=== PATIENT | female | born 2000 | race Caucasian/White ===

== ENCOUNTER 2023-02-26 10:20 | Outpatient (OUT) | payer BC, SELFPAY ==
[2023-02-27 05:28] LABS: Measles Antibodies, IgG >300.0 AU/mL (Immune >16.4); Mumps Abs, IgG 57.3 AU/mL (Immune >10.9); Rubella Antibodies, IgG 7.92 index (Immune >0.99)
[2023-02-27 06:30] LABS: Varicella-Zoster V Ab, IgG <135 index (Immune >165)
[2023-02-27 08:32] LABS: Hep B Surface Ab Non Reactive (.)
[2023-10-31 09:26] LABS: QuantiFERON-TB Gold Plus NEGATIVE
== END 2023-02-26 10:21 | disposition home or self-care (01) ==
PROVIDERS: PCP Family Medicine; Visit Provider Family Medicine
DX: Z01.84 Encounter for antibody response examination (principal); Z11.1 Encounter for screening for respiratory tuberculosis
CPT/HCPCS: 36415; 86480; 86706; 86735; 86762; 86765; 86787

== ENCOUNTER 2023-03-05 13:33 | Outpatient (OUT) | payer BC, SELFPAY ==
[2023-10-31 09:36] LABS: QuantiFERON-TB Gold Plus NEGATIVE
== END 2023-03-05 13:34 | disposition home or self-care (01) ==
LOC: LAB 13:33
PROVIDERS: PCP Family Medicine; Visit Provider Family Medicine
DX: Z00.00 Encounter for general adult medical examination without abnormal findings (principal)
CPT/HCPCS: 36415; 86480

== ENCOUNTER 2023-06-12 10:21 | Outpatient (OUT) | payer BC, SELFPAY ==
--- NOTE | 2023-06-12 | US_ITS ---
The [address] [address] Patient Name: YANIRA LEPE MRN: [id number] date: 2000 Sex: F Assigned Patient Location: RAD Current Patient Location: RAD Accession/Order Number: [id number] Exam Date: 06/12/2023 10:28 Report Date: 06/12/2023 14:02 At the request of: LAMINE FIGUEROA Procedure: US pelvis w/ transvaginal EXAM: US pelvis w/ transvaginal HISTORY: Pelvic pain COMPARISON: None. TECHNIQUE: Pelvic and transvaginal ultrasound performed using Doppler interrogation FINDINGS: Uterus measures 8 x 4.1 x 3.4 cm. Trace free fluid is seen. Endometrium is 7 mm. Both ovaries are normal in size and echotexture and vascularity. No evidence of torsion or mass. US/US pelvis w/ transvaginal IMPRESSION: Small amount of free pelvic fluid; physiologic in quantity.. No acute correlate for pelvic pain. No torsion. Electronically authenticated by: BERTRAND RODRIGUES Date: 06/12/2023 14:02
== END 2023-06-12 10:22 | disposition home or self-care (01) ==
LOC: RAD 10:22
PROVIDERS: PCP Family Medicine; Visit Provider Obstetrics & Gynecology
DX: N83.209 Unspecified ovarian cyst, unspecified side (principal); R10.2 Pelvic and perineal pain
CPT/HCPCS: 76830; 76856

== ENCOUNTER 2024-02-11 18:46 | Outpatient (REF) | payer BC, SELFPAY ==
[2024-02-17 09:09] LABS: Age Gdln ACOG Testing Note (.); IGP, rfx Aptima HPV ASCU Note (.)
== END 2024-02-11 18:47 | disposition home or self-care (01) ==
LOC: LAB 18:46
PROVIDERS: PCP Family Medicine; Visit Provider Obstetrics & Gynecology
DX: Z01.419 Encounter for gynecological examination (general) (routine) without abnormal findings (principal)
CPT/HCPCS: 88175

== ENCOUNTER 2024-02-20 11:23 | Outpatient (OUT) | payer BC, SELFPAY ==
--- OUTSIDE RECORDS SUMMARY | 2024-02-20 11:40 | XMS_ITS | CCD ---
Author Organization [facility] Care Team Providers Care Bench Carpenter Name Role Phone CAROLINA LAMINE Consulting Unavailable CAROLINA, LAMINE Attending Unavailable CAROLINA, LAMINE Admitting Unavailable HOY ., DR FORTUNE Primary Care Unavailable SILVESTRE CABRERA Consulting Unavailable BHAVANA LO Consulting Unavailable CAROLINA, LAMINE Consulting Unavailable CAROLINA, LAMINE Attending Unavailable HOY ., DR FORTUNE Primary Care Unavailable CAROLINA, LAMINE Admitting Unavailable HOY ., DR FORTUNE Admitting Unavailable HOY ., DR FORTUNE Primary Care Unavailable HOY ., DR FORTUNE Consulting Unavailable HOY ., DR FORTUNE Attending Unavailable Norris Gooden Consulting Unavailable CAROLINA, LAMINE Attending Unavailable HOY ., DR FORTUNE Primary Care Unavailable CAROLINA, LAMINE Admitting Unavailable CAROLINA, LAMINE Attending Unavailable Problems Active Problems Problem Classification Problem Date Documented Date Episodic/Chronic Abdominal pain (9 sources) Pelvic and perineal pain; Translations: [Right lower quadrant pain] Onset: 06-20-2022 Episodic Immunizations and screening for infectious disease (1 source) Contact with and (suspected) exposure to infections with a predominantly sexual mode of transmission; Translations: [CONTCT W EXPOS INFECT SEXUAL TRNSMS] Onset: 08-29-2022 Episodic Other female genital disorders (5 sources) Other specified noninflammatory disorders of vagina; Translations: [OTH SPEC NONINFLAMMATORY D/O VAGINA] Onset: 08-28-2022 Episodic Past or Other Problems Problem Classification Problem Date Documented Da te Episodic/Chronic Otitis media and related conditions (1 source) Otitis media, unspecified, bilateral; Translations: [OTITIS MEDIA UNSPECIFIED BILATERAL] Onset: 06-24-2022 Episodic Ovarian cyst (1 source) Other ovarian cyst, right side; Translations: [OTHER OVARIAN CYST RIGHT SIDE] Onset: 06-24-2022 Episodic Results Test Name Value Interpretation Reference Range Facil ity CBC AUTO DIFFon 09-27-2022 BASO # 0.0 103/ul Normal 0.0-0.1 [facility] Comment on above: Performed By: #### C BC #### [facility] [address] [address] [address] Christo Doherty Basophils/100 WBC (Bld) 0.8 % Normal 0.2-2.0 [facility] Comment on above: Performed By: #### C BC #### [facility] [address] [address] [address] Christo Doherty EO # 0.1 103/ul Normal 0.0-0.7 [facility] Comment on above: Performed By: #### C BC #### [facility] [address] [place] [address] Dr. Christo Doherty Eosinophils/100 WBC (Bld) 2.4 % Normal 0.9-7.0 [facility] Comment on above: Performed By: #### C BC #### [facility] [address] [place] [address] Dr. Christo Doherty Erythrocyte distribution width (RBC) [Ratio] 12.0 % Normal 11.0-15.0 [facility] Comment on above: Performed By: #### C BC #### [facility] [address] [place] [address] Dr. Christo Doherty Hematocrit (Bld) [Volume fraction] 42.8 % Normal 36.0-48.0 [facility] Comment on above: Performed By: #### C BC #### [facility] [address] [place] [address] Dr. Christo Doherty Hemoglobin (Bld) [Mass/Vol] 14.8 g/dL Normal 12.0-16.0 [facility] Comment on above: Performed By: #### C BC #### [facility] [address] [place] [address] Dr. Christo Doherty IG # 0.01 10e3/ul Normal 0.00-0.03 [facility] Comment on above: Performed By: #### C BC #### [facility] [address] [place] [address] Dr. Christo Doherty IG % 0.2 % Normal 0.0-0.5 [facility] Comment on above: Performed By: #### C BC #### [facility] [address] [place] [address] Dr. Christo Doherty LYMPH # 2.0 103/ul Normal 1.2-3.8 [facility] Comment on above: Performed By: #### C BC #### [facility] [address] [place] [address] Dr. Christo Doherty Lymphocytes/100 WBC (Bld) 41.4 % Normal 20.5-60.0 [facility] Comment on above: Performed By: #### C BC #### [facility] [address] [place] [address] Dr. Christo Doherty MANUAL DIFF REQ NO Normal [facility] Comment on above: Performed By: #### C BC #### [facility] [address] [place] [address] Dr. Christo Doherty MCH (RBC) [Entitic mass] 31.8 pg Normal 26.7-34.0 [facility] Comment on above: Performed By: #### C BC #### [facility] [address] [place] [address] Dr. Christo Doherty MCHC (RBC) [Mass/Vol] 34.6 g/dL Normal 29.9-35.2 [facility] Comment on above: Performed By: #### C BC #### [facility] [address] [place] [address] Dr. Christo Doherty MCV (RBC) [Entitic vol] 91.8 fL Normal 81.0-99.0 [facility] Comment on above: Performed By: #### C BC #### [facility] [address] [place] [address] Dr. Christo Doherty MONO # 0.5 103/ul Normal 0.3-0.8 [facility] Comment on above: Performed By: #### C BC #### [facility] [address] [place] [address] Dr. Christo Doherty Monocytes/100 WBC (Bld) 10.8 % Normal 1.7-12.0 [facility] Comment on above: Performed By: #### C BC #### [facility] [address] [place] [address] Dr. Christo Doherty NEUT # 2.2 103/ul Normal 1.4-6.5 [facility] Comment on above: Performed By: #### C BC #### [facility] [address] [place] [address] Dr. Christo Doherty Neutrophils/100 WBC (Bld) 44.4 % Normal 43.0-75.0 [facility] Comment on above: Performed By: #### C BC #### [facility] [address] [place] [address] Dr. Christo Doherty Platelet mean volume (Bld) [Entitic vol] 9.6 fL Normal 9.5-13.5 [facility] Comment on above: Performed By: #### C BC #### [facility] [address] [place] [address] Dr. Christo Doherty PLT 284 103/ul Normal 150-450 [facility] Comment on above: Performed By: #### C BC #### [facility] [address] [place] [address] Dr. Christo Doherty RBC 4.66 106/ul Normal 4.20-5.40 [facility] Comment on above: Performed By: #### C BC #### [facility] [address] [place] [address] Dr. Christo Doherty WBC 4.9 103/ul Normal 4.0-11.0 [facility] Comment on above: Performed By: #### C BC #### [facility] [address] [place] [address] Dr. Christo Doherty CYTOLOGYon 09-27-2022 SENT TO REF LAB 09/30/22 Normal [facility] Comment on above: Performed By: #### C YTO #### [facility] [address] [place] [address] Dr. Christo Doherty PREG QUANT HCGon 09-27-2022 HCG QUANT <1 Normal [facility] Comment on above: Performed By: #### P REGQNT #### [facility] [address] [place] [address] Dr. Christo Doherty HCG RANGE SEE BELOW Normal [facility] Comment on above: Result Comment: 5-50 0.2-1 WEEK 50-500 1-2 WEEKS 100-5,000 2-3 WEEKS 500-10,000 3-4 WEEKS 1,000-50,000 4-5 WEEKS 10,000-100,000 5-6 WEEKS 15,000-200,000 6-8 WEEKS 10,000-100,000 2-3 MONTHS Performed By: #### P REGQNT #### [facility] [address] [place] [address] Dr. Christo Doherty CHLAMYDIA/GONOCOCCUS RENEE ( AB/URINE/PAPon 09-01-2022 Chlamydia trachomatis, RENEE Negative Normal Negative [facility] Comment on above: Performed By: #### C T/NGNA #### [facility] [address] [place] [address] Dr. Christo Doherty Neisseria gonorrhoeae, RENEE Negative Normal Negative [facility] Comment on above: Performed By: #### C T/NGNA #### [facility] [address] [place] [address] Dr. Christo Doherty VAGINITIS/VAGINOSIS DNA PROB Donny 08-30-2022 Pat species Negative Normal Negative [facility] Comment on above: Performed By: #### V AGINT #### [facility] [address] [place] [address] Dr. Christo Doherty Gardnerella vaginalis Negative Normal Negative [facility] Comment on above: Performed By: #### V AGINT #### [facility] [address] [place] [address] Dr. Christo Doherty Trichomonas vaginalis Negative Normal Negative [facility] Comment on above: Performed By: #### V AGINT #### [facility] [address] [place] [address] Dr. Christo Doherty US PELVIS TRANSVAGon 022 US PELVIS TRANSVAG EXAMINATION: US APPENDIX, US PELVIS TRANSVAG HISTORY: Right lower quadrant pain , intermittent for several months, nausea COMPARISON: No relevant comparison available. TECHNIQUE: Transabdominal and transvaginal sonographic examination. FINDINGS: UTERUS: Normal size and appearance. Nabothian cyst within cervix. Uterus size: 7.6 x 5.8 x 4.1 cm ENDOMETRIUM: Normal homogeneous appearance. Endometrial thickness: RIGHT OVARY: Contains numerous small follicles. Duplex Doppler demonstrates normal waveform and flow; resistive index 0.5. Ovary size: 4.3 x 2.6 x 1.8 cm LEFT OVARY: Contains an isoechoic 2.5 x 1.8 x 1.7 cm complex cyst versus hypovascular mass. Duplex Doppler demonstrates normal waveform and flow; resistive index 0.5. Ovary size: 4.7 x 3.3 x 2.8 cm CUL-DE-SAC: Unremarkable. No significant free fluid. BLADDER: Unremarkable. OTHER: Within right adnexa is a 1.7 x 1.2 x 1.1 cm oval anechoic simple appearing paraovarian cyst of questionable clinical significance. Normal appearing appendix 5-6 mm in diameter. No free fluid or adenopathy. IMPRESSION: 1. Normal appendix. 2. Right adnexal 1.7 cm paraovarian cyst of uncertain clinical significance. Consider follow-up ultrasound evaluation in 2-3 months to document stability versus resolution. Electronically authenticated by: NORRIS GOODEN Date: 2022-06-20 08:28 Normal [facility] Encounters Encounter Date Encounter Type Care Provider Facility Start: 02-11-2024 End: 02-11-2024 ambulatory LAMINE MONGE Not Available Start: 09-27-2022 End: 09-27-2022 ambulatory LAMINE CAROLINA Facility:[facility] Start: 09-20-2022 Encounter for other preprocedural examination LAMINE MONGE [facility] Start: 09-17-2022 End: 09-18-2022 ambulatory LAMINE MONGE Facility: Start: 09-17-2022 End: 09-18-2022 Encounter for other preprocedural examination LAMINE CAROLINA Facility:[facility] Start: 08-28-2022 End: 08-28-2022 ambulatory LAMINE MONGE Facility: Start: 06-20-2022 End: 06-21-[address] DEVIKA DIAZ . Facility: Payers Date Payer Category Payer Unknown [id number] [id number] [id number] 2002 Unknown [id number] [id number] [id number] 2002 Unknown [id number] 2.16.84 [id number] 2002 Unknown [id number] 2.16.84 [id number] 2002 Unknown [id number] 2.16.84 [id number] 1959 Unknown [id number] Clinical Note 09-27-2022 Note Date & Type Note Facility 09-27-2022 Note OPERATIVE NOTE OPERATION DATE: 09/27/2022 PROCEDURE: Diagnostic laparoscopy. PREOPERATIVE DIAGNOSIS: Pelvis pain, history of ovarian cyst. POSTOPERATIVE DIAGNOSIS: Pelvis pain, history of ovarian cyst, including suspected ruptured ovarian cyst due to significant amount of pelvic fluid in the posterior cul-de-sac. ANESTHESIA: General SURGEON: Lamine Monge D.O. REGISTERED ART THERAPIST: JALIL Castro BLOOD LOSS: 5 mL. URINE OUTPUT: Yellow and clear. SPECIMEN: Pelvic fluid for cytology. FINDING: Normal appearing ovaries, uterus and tubes. Significant amount of pelvic fluid in the pelvic cavity. PROCEDURE: The patient was taken back to the Operating Room where she was placed in dorsal lithotomy position after given general anesthesia. The patient was prepped and draped in normal sterile fashion. A sponge stick was placed into the patient's vagina. Attention was turned to the patient's abdomen, where a small umbilical incision was made. The fascia was tented using Marzena clamps and the fascia was entered sharply. Confirmation of intra-abdominal placement of the 10 mm port was confirmed under direct visualization using a laparoscope. The patient's abdomen was then insufflated using CO2 gas with approximately 4 liters. A second port was placed left laterally; this was done under direct visualization with a 5 mm port. Survey of the patient's abdomen demonstrated normal liver and gallbladder. Survey of the patient's pelvic anatomy demonstrated normal appearing ovaries and tubes as well as normal appearing uterus. No endometrial implants could be noted, no evidence of any pelvic disease was seen, normal appearing pelvic cavity. All instruments were removed from the patient's abdomen. The patient's abdomen was desufflated of CO2 gas. The patient tolerated the procedure well. Sponge stick was removed from the patient's vagina. The patient's infraumbilical fascia was closed using #0 Vicryl on a GI needle. The patient's skin was closed laterally and infraumbilically using 4-0 Vicryl. The patient tolerated the procedure well. Sponge, lap and needle counts were correct x 2. The patient was taken to Recovery Room in stable condition [facility] Clinical Note 09-27-2022 Note Date & Type Note Facility 09-27-2022 Note OPERATIVE NOTE OPERATION DATE: 10/11/2022 PROCEDURE: Diagnostic laparoscopy. ADDENDUM: There was a significant amount of pelvic fluid noted in the pelvic cavity. Please note that the fluid was removed without difficulty and that the fluid was then sent off to Pathology for cytology. [facility] Summary Purpose Family History No Family History Records FoundNo Family History Records Found Advance Directives No Advanced Directives Records FoundNo Advanced Directives Records Found Additional Source Comments INFORMATION SOURCE (unrecogn ized section and content) DATE CREATED AUTHOR 10/22/2022 [facility] DATE CREATED AUTHOR AUTHOR'S TREE ATKEVIN 02/18/2024 [facility] FOR RECORDS PERTAINING TO PATIENTS WHO ARE OR HAVE BEEN ENROLLED IN A CHEMICAL DEPENDENCY/SUBSTANCEABUSE PROGRAM, SOME INFORMATION MAY BE OMITTED. This clinical summary was aggregated from multiple sources. Caution should be exercised in using it in the provision of clinical care. This summary normalizes information from multiple sources, and as a consequence, information in this document may materially change the coding, format and clinical context of patient data. In addition, data may be omitted in some cases. CLINICAL DECISIONS SHOULD BE BASED ON THE PRIMARY CLINICAL RECORDS. [email or web address] provides no warranty or guarantee of the accuracy or completeness of information in this document.
[2024-02-20 11:54] LABS: Estimated Average Glucose 82 mg/dL; Glycohemoglobin A1C 4.5 % (4.5-6.2)
[2024-02-20 11:56] LABS: Basophils Percent Auto 0.8 % (0.2-2.0); Eosinophils Absolute Auto 0.1 10^3/uL (0.0-0.7); Eosinophils Percent Auto 1.6 % (0.9-7.0); Immature Granulocytes Abs Auto 0.01 10^3/uL (0.00-0.03); Immature Granulocytes Pct Auto 0.2 % (0.0-0.5); Lymphocytes Absolute Auto 1.3 10^3/uL (1.2-3.8); Lymphocytes Percent Auto 26.4 % (20.5-60.0); Mean Corpuscular HGB Conc 34.1 g/dL (29.9-35.2); Mean Corpuscular Hemoglobin 31.4 pg (26.7-34.0); Mean Corpuscular Volume 92.2 fL (81.0-99.0); Monocytes Absolute Auto 0.5 10^3/uL (0.3-0.8); Monocytes Percent Auto 9.9 % (1.7-12.0); Neutrophils Percent Auto 61.1 % (43.0-75.0); Platelet Count 286 10^3/uL (150-450); Red Blood Count 4.77 10^6/uL (4.20-5.40); Red Cell Distribution Width 11.9 % (11.0-15.0); White Blood Count 4.9 10^3/uL (4.0-11.0)
[2024-02-20 12:41] LABS: Free T4 0.91 ng/dL (0.76-1.46)
[2024-02-20 13:47] LABS: Thyroid Stimulating Hormone 2.184 uIU/mL (0.358-3.740)
[2024-02-20 14:15] LABS: HCG Quantitative <1 mIU/mL
[2024-02-25 17:10] LABS: DHEA, Serum 244 ng/dL (31-701)
== END 2024-02-20 11:24 | disposition home or self-care (01) ==
LOC: LAB 11:23
PROVIDERS: PCP Family Medicine; Visit Provider Obstetrics & Gynecology
DX: E28.2 Polycystic ovarian syndrome (principal); N92.6 Irregular menstruation, unspecified
CPT/HCPCS: 36415; 82626; 82627; 83001; 83002; 83036; 84439; 84443; 84702; 85025